=== PATIENT | male | born 1935 | race African-American/Black ===

== ENCOUNTER 2019-08-21 03:58 | Inpatient (IN) | payer MEDICARE ==
[~2019-08-21] VITALS: Ht 170.2 cm; Wt 53.3 kg
[~2019-08-21 03:58] MED LIST: ASPI-1497 PO; CARV6.2548 PO; DOCU-272 PO; FINA5TAB11 PO; IRON; NITR0.4T49 SL; TICA90TA PO
[2019-08-21] MEDS ORDERED: ASPIRIN 81MG TABLET PO ONE (04:15)
[2019-08-21] MEDS ORDERED: MORPHINE SULFATE 4 MG/ML CPJ (NOT FOR IM USE) IV ONE (04:30)
[2019-08-21 04:53] LABS: BASOPHILS % 1.2 % (0.0-2.0); EOSINOPHILS % 2.7 % (0.0-5.0); HEMATOCRIT. 29.4 % (42.0-52.0); HEMOGLOBIN. 9.5 g/dL (14.0-18.0); LYMPHOCYTES % 35.1 % (20.0-50.0); MEAN CORPUSCULAR HEMOGLOBIN 27.2 pg (28.0-32.0); MEAN CORPUSCULAR VOLUME 84.2 fL (80.0-94.0); MEAN PLATELET VOLUME 9.4 fl (7.4-10.4); MONOCYTES % 14.2 % (2.0-8.0); NEUTROPHILS % 46.8 % (40.0-76.0); PLATELET 306 x1000/uL (130-400); RED BLOOD CELL COUNT 3.49 mill/uL (4.7-6.1); RED CELL DISTRIBUTION WIDTH 15.2 % (11.6-14.6)
[2019-08-21 04:54] LABS: CHLORIDE 107 mEq/L (98-107)
[2019-08-21 04:58] LABS: ETHANOL BLOOD < 10 mg/dL
[2019-08-21] MEDS ORDERED: ONDANSETRON HCL 4MG/2ML INJ IV PRN (08:00)
[2019-08-21] MEDS ORDERED: MORPHINE SULFATE 2 MG/ML CPJ (NOT FOR IM USE) IV PRN (08:00)
[2019-08-21] MEDS ORDERED: IPRATROPIUM/ALBUTEROL 0.5-3(2.5)MG/3ML NEB HHN PRN (08:00)
[2019-08-21] MEDS ORDERED: CLONIDINE 0.1MG TABLET PO PRN (08:00)
[2019-08-21] MEDS ORDERED: DIPHENHYDRAMINE 50MG/ML VIAL IV PRN (08:00)
[2019-08-21] MEDS: ENOXAPARIN 30MG/0.3ML SYR SUBCUT SCH (08:29)
[2019-08-21 09:00] VITALS: BP 114/66
[2019-08-21 09:10] LABS: PHOSPHORUS 3.7 mg/dL (2.5-4.9)
[2019-08-21 09:17] LABS: *BARBITURATES SCREEN URINE NEGATIVE (NEGATIVE); *COCAINE SCREEN URINE NEGATIVE (NEGATIVE)
[2019-08-21 09:18] LABS: *AMPHETAMINES SCREEN URINE NEGATIVE (NEGATIVE); *BENZODIAZEPINES SCREEN URINE NEGATIVE (NEGATIVE); CANNABINOID URINE SCREEN NEGATIVE (NEGATIVE); METHADONE URINE SCREEN NEGATIVE (NEGATIVE); OPIATES URINE SCREEN PRESUMTIVE POSITIVE (NEGATIVE); PHENCYCLIDINE URINE SCREEN NEGATIVE (NEGATIVE)
[2019-08-21] MEDS ORDERED: REGADENOSON 0.4 MG/5 ML IV ONE (10:00)
[2019-08-21] MEDS: ASPIRIN 81MG EC TABLET PO SCH (10:00)
[2019-08-21] MEDS ORDERED: REGADENOSON 0.4 MG/5 ML IV NR (10:30)
[2019-08-21] MEDS ORDERED: ATOR40TA70 MT (11:26)
[2019-08-21] MEDS ORDERED: DOXA4TAB3 MT (11:26)
[2019-08-21] MEDS ORDERED: CLON0.2T MT (11:26)
[2019-08-21] MEDS ORDERED: ISOS10TA53 MT (11:26)
[2019-08-21] MEDS: CLOPIDOGREL 75MG TABLET PO SCH (12:45)
[2019-08-21 20:00] VITALS: BP 127/53
[2019-08-21] MEDS ORDERED: DEXTROSE 50% WATER 50ML SYRINGE IV PRN (20:15)
[2019-08-21] MEDS: ATORVASTATIN CALCIUM 20MG TABLET PO SCH (20:49)
[2019-08-21] MEDS: INSULIN LISPRO 100 UNITS/ML SUBCUT SCH (20:49)
[2019-08-21] MEDS: BLOOD SUGAR DIAGNOSTIC STRIP TEST SCH (20:49)
[2019-08-21] MEDS: METOPROLOL TARTRATE 25MG TABLET PO SCH (20:49)
[2019-08-21 23:44] VITALS: BP 121/60
[2019-08-22 04:30] VITALS: BP 114/43
[2019-08-22] MEDS: INSULIN LISPRO 100 UNITS/ML SUBCUT SCH ×4 (07:15→20:35)
[2019-08-22 08:00] VITALS: BP 124/57
[2019-08-22] MEDS: BLOOD SUGAR DIAGNOSTIC STRIP TEST SCH ×4 (08:19→20:34)
[2019-08-22 08:21] LABS: BASOPHILS % 1.7 % (0.0-2.0); EOSINOPHILS % 4.2 % (0.0-5.0); HEMOGLOBIN. 8.7 g/dL (14.0-18.0); LYMPHOCYTES % 33.1 % (20.0-50.0); MEAN CORPUSCULAR HEMOGLOBIN 27.7 pg (28.0-32.0); MEAN CORPUSCULAR VOLUME 82.5 fL (80.0-94.0); MEAN PLATELET VOLUME 9.8 fl (7.4-10.4); MONOCYTES % 13.6 % (2.0-8.0); NEUTROPHILS % 47.4 % (40.0-76.0); PLATELET 258 x1000/uL (130-400); RED BLOOD CELL COUNT 3.15 mill/uL (4.7-6.1); RED CELL DISTRIBUTION WIDTH 14.7 % (11.6-14.6)
[2019-08-22 08:40] LABS: CHLORIDE 108 mEq/L (98-107)
[2019-08-22 08:54] LABS: LDL CHOLESTEROL 67 mg/dL (5-100)
[2019-08-22 08:57] LABS: HDL CHOLESTEROL 82 mg/dL (40-59)
[2019-08-22] MEDS: METOPROLOL TARTRATE 25MG TABLET PO SCH ×2 (09:23→20:30)
[2019-08-22] MEDS: ENOXAPARIN 30MG/0.3ML SYR SUBCUT SCH (09:23)
[2019-08-22] MEDS: ASPIRIN 81MG EC TABLET PO SCH (09:23)
[2019-08-22] MEDS: CLOPIDOGREL 75MG TABLET PO SCH (09:23)
[2019-08-22 12:00] VITALS: BP 100/44
[2019-08-22 16:00] VITALS: BP 116/50
[2019-08-22 20:00] VITALS: BP 125/49
[2019-08-22] MEDS: ATORVASTATIN CALCIUM 20MG TABLET PO SCH (20:30)
[2019-08-23] VITALS: BP 115/52
[2019-08-23 04:00] VITALS: BP 115/53
[2019-08-23 06:00] LABS: CHLORIDE 107 mEq/L (98-107)
[2019-08-23 06:02] LABS: BASOPHILS % 1.2 % (0.0-2.0); EOSINOPHILS % 3.7 % (0.0-5.0); HEMATOCRIT. 27.1 % (42.0-52.0); HEMOGLOBIN. 9.3 g/dL (14.0-18.0); LYMPHOCYTES % 27.1 % (20.0-50.0); MEAN CORPUSCULAR HEMOGLOBIN 28.5 pg (28.0-32.0); MEAN CORPUSCULAR VOLUME 82.9 fL (80.0-94.0); MEAN PLATELET VOLUME 9.7 fl (7.4-10.4); MONOCYTES % 12.1 % (2.0-8.0); NEUTROPHILS % 55.9 % (40.0-76.0); PLATELET 256 x1000/uL (130-400); RED BLOOD CELL COUNT 3.27 mill/uL (4.7-6.1)
[2019-08-23] MEDS: INSULIN LISPRO 100 UNITS/ML SUBCUT SCH (06:31)
[2019-08-23] MEDS: BLOOD SUGAR DIAGNOSTIC STRIP TEST SCH (06:31)
[2019-08-23 08:00] VITALS: BP 119/49
[2019-08-23] MEDS: CLOPIDOGREL 75MG TABLET PO SCH (10:00)
[2019-08-23] MEDS: METOPROLOL TARTRATE 25MG TABLET PO SCH ×2 (10:00→21:07)
[2019-08-23] MEDS: ASPIRIN 81MG EC TABLET PO SCH (10:00)
[2019-08-23] MEDS: ENOXAPARIN 30MG/0.3ML SYR SUBCUT SCH (10:01)
[2019-08-23 12:00] VITALS: BP 126/55
[2019-08-23 16:00] VITALS: BP 127/50
[2019-08-23 20:00] VITALS: BP 137/49
[2019-08-23] MEDS: ATORVASTATIN CALCIUM 20MG TABLET PO SCH (21:07)
[2019-08-24] VITALS: BP 115/47
[2019-08-24 04:00] VITALS: BP 108/50
[2019-08-24 07:29] LABS: EOSINOPHILS % 2.1 % (0.0-5.0); HEMATOCRIT. 27.4 % (42.0-52.0); HEMOGLOBIN. 9.1 g/dL (14.0-18.0); LYMPHOCYTES % 29.2 % (20.0-50.0); MEAN CORPUSCULAR HEMOGLOBIN 27.6 pg (28.0-32.0); MEAN CORPUSCULAR VOLUME 82.8 fL (80.0-94.0); MEAN PLATELET VOLUME 9.6 fl (7.4-10.4); MONOCYTES % 14.1 % (2.0-8.0); NEUTROPHILS % 53.6 % (40.0-76.0); PLATELET 261 x1000/uL (130-400); RED BLOOD CELL COUNT 3.31 mill/uL (4.7-6.1); RED CELL DISTRIBUTION WIDTH 15.1 % (11.6-14.6)
[2019-08-24 07:51] LABS: CHLORIDE 106 mEq/L (98-107)
[2019-08-24 08:00] VITALS: BP 152/63
[2019-08-24] MEDS: METOPROLOL TARTRATE 25MG TABLET PO SCH ×2 (09:00→21:26)
[2019-08-24] MEDS: ASPIRIN 81MG EC TABLET PO SCH (09:00)
[2019-08-24] MEDS: CLOPIDOGREL 75MG TABLET PO SCH (09:00)
[2019-08-24] MEDS: ENOXAPARIN 30MG/0.3ML SYR SUBCUT SCH (09:00)
[2019-08-24 12:00] VITALS: BP 101/59
[2019-08-24 16:00] VITALS: BP 138/54
[2019-08-24 20:00] VITALS: BP 141/54
[2019-08-24] MEDS: ATORVASTATIN CALCIUM 20MG TABLET PO SCH (21:25)
[2019-08-25] VITALS: BP 114/55
[2019-08-25 04:00] VITALS: BP 114/46
[2019-08-25 07:28] LABS: BASOPHILS % 1.2 % (0.0-2.0); EOSINOPHILS % 2.2 % (0.0-5.0); HEMATOCRIT. 29.5 % (42.0-52.0); HEMOGLOBIN. 9.4 g/dL (14.0-18.0); LYMPHOCYTES % 27.1 % (20.0-50.0); MEAN CORPUSCULAR HEMOGLOBIN 26.7 pg (28.0-32.0); MEAN CORPUSCULAR VOLUME 83.3 fL (80.0-94.0); MEAN PLATELET VOLUME 9.8 fl (7.4-10.4); MONOCYTES % 13.8 % (2.0-8.0); NEUTROPHILS % 55.7 % (40.0-76.0); PLATELET 247 x1000/uL (130-400); RED BLOOD CELL COUNT 3.54 mill/uL (4.7-6.1); RED CELL DISTRIBUTION WIDTH 15.1 % (11.6-14.6)
[2019-08-25 07:34] LABS: CHLORIDE 108 mEq/L (98-107)
[2019-08-25 08:00] VITALS: BP 123/48
[2019-08-25] MEDS: METOPROLOL TARTRATE 25MG TABLET PO SCH ×2 (09:00→21:00)
[2019-08-25] MEDS: ASPIRIN 81MG EC TABLET PO SCH (09:00)
[2019-08-25] MEDS: CLOPIDOGREL 75MG TABLET PO SCH (09:00)
[2019-08-25] MEDS: ENOXAPARIN 30MG/0.3ML SYR SUBCUT SCH (09:00)
[2019-08-25 12:00] VITALS: BP 121/50
[2019-08-25] MEDS ORDERED: LIDOCAINE HCL 1% 20ML VIAL (Pyxis) INJ ONE (14:31)
[2019-08-25] MEDS ORDERED: IODIXANOL 320MG/ML 100 ML BOTTLE IV ONE (14:31)
[2019-08-25] MEDS ORDERED: MIDAZOLAM HCL 2 MG/2 ML VIAL ONE (14:31)
[2019-08-25] MEDS ORDERED: FENTANYL CITRATE/PF 50MCG/ML 2ML VIAL ONE (14:31)
[2019-08-25] MEDS ORDERED: ATROPINE SULFATE 1MG/10ML SYR IV PRN (15:45)
[2019-08-25] MEDS ORDERED: ACETAMINOPHEN 325MG TABLET PO PRN (15:45)
[2019-08-25] MEDS ORDERED: CLOPIDOGREL 75MG TABLET PO SCH (15:45)
[2019-08-25 20:00] VITALS: BP 112/62
[2019-08-25] MEDS: ATORVASTATIN CALCIUM 20MG TABLET PO SCH (21:27)
[2019-08-25 22:00] VITALS: BP 139/54
[2019-08-26] VITALS (8 sets, daily range): BP systolic 98–143; BP diastolic 44–94
[2019-08-26 05:55] LABS: BASOPHILS % 0.5 % (0.0-2.0); EOSINOPHILS % 0.7 % (0.0-5.0); HEMATOCRIT. 28.3 % (42.0-52.0); HEMOGLOBIN. 9.3 g/dL (14.0-18.0); LYMPHOCYTES % 18.8 % (20.0-50.0); MEAN CORPUSCULAR VOLUME 82.5 fL (80.0-94.0); MEAN PLATELET VOLUME 9.2 fl (7.4-10.4); MONOCYTES % 12.7 % (2.0-8.0); NEUTROPHILS % 67.3 % (40.0-76.0); PLATELET 226 x1000/uL (130-400); RED BLOOD CELL COUNT 3.43 mill/uL (4.7-6.1); RED CELL DISTRIBUTION WIDTH 15.2 % (11.6-14.6)
[2019-08-26 06:08] LABS: CHLORIDE 107 mEq/L (98-107)
[2019-08-26] MEDS: ACETAMINOPHEN 325MG TABLET PO PRN ×2 (06:34→10:58)
[2019-08-26] MEDS: ENOXAPARIN 30MG/0.3ML SYR SUBCUT SCH (09:00)
[2019-08-26] MEDS ORDERED: ASPIRIN 325MG TABLET PO SCH (09:00)
[2019-08-26] MEDS: CLOPIDOGREL 75MG TABLET PO SCH (09:04)
[2019-08-26] MEDS: METOPROLOL TARTRATE 25MG TABLET PO SCH (09:04)
[2019-08-26] MEDS ORDERED: TICAGRELOR 90 MG TABLET PO SCH (11:45)
[2019-08-27] MEDS ORDERED: ASPIRIN 81MG TABLET PO SCH (09:00)
== END 2019-08-26 12:40 | disposition home or self-care (01) | DRG 281 ==
LOC: ER 03:58 → 5WST 06:09 → ENRESERV 08:19 → 3WST 08-25 18:50
PROVIDERS: ADMIT Internal Medicine; ATTEND Internal Medicine
PROC: 4A023N8 Measurement of Cardiac Sampling and Pressure, Bilateral, Percutaneous Approach (ICD-10-PCS; principal; 2019-08-24)
PROC: B2111ZZ Fluoroscopy of Multiple Coronary Arteries using Low Osmolar Contrast (ICD-10-PCS; 2019-08-24)
PROC: B4101ZZ Fluoroscopy of Abdominal Aorta using Low Osmolar Contrast (ICD-10-PCS; 2019-08-24)
PROC: B41C1ZZ Fluoroscopy of Pelvic Arteries using Low Osmolar Contrast (ICD-10-PCS; 2019-08-24)
DX: I21.4 Non-ST elevation (NSTEMI) myocardial infarction (principal); I42.9 Cardiomyopathy, unspecified; I50.32 Chronic diastolic (congestive) heart failure; E44.1 Mild protein-calorie malnutrition; I11.0 Hypertensive heart disease with heart failure; D64.9 Anemia, unspecified; E78.5 Hyperlipidemia, unspecified; I25.10 Atherosclerotic heart disease of native coronary artery without angina pectoris; I35.0 Nonrheumatic aortic (valve) stenosis; I65.22 Occlusion and stenosis of left carotid artery; I73.9 Peripheral vascular disease, unspecified; M10.9 Gout, unspecified; Z95.5 Presence of coronary angioplasty implant and graft; I25.2 Old myocardial infarction; Z95.0 Presence of cardiac pacemaker; Z79.899 Other long term (current) drug therapy
CPT/HCPCS: 36415; 71045; 80048; 80053; 80061; 80305; 80320; 82728; 82962; 83540; 83550; 83735; 83880; 84100; 84443; 84484; 85025; 93005; 93306; 93460; 93880; 93970; 96374; 99285; A9500; C1769; C1887; C1893; J1644; J1650; J2250; J2270; J3010; J3490; Q9967; G0480